=== PATIENT | female | born 1960 | race Two or more races ===

== ENCOUNTER → 2016-06-17 | Outpatient (CLI) | payer BC | LOC: FIMAGING 07:25 | DX: Z12.31 Encounter for screening mammogram for malignant neoplasm of breast (principal) | CPT/HCPCS: G0202 ==

== ENCOUNTER → 2017-07-09 | Outpatient (CLI) | payer BC | LOC: FIMAGING 08:10 | DX: Z12.31 Encounter for screening mammogram for malignant neoplasm of breast (principal) ==

== ENCOUNTER → 2018-07-12 | Outpatient (CLI) | payer BC | LOC: FIMAGING 07:46 ==